=== PATIENT | male | born 1990 | race African-American/Black ===

== ENCOUNTER 2018-11-12 16:01 | Emergency (ER) | payer MEDICAID ==
[~2018-11-12] VITALS: Ht 190.5 cm; Wt 119.0 kg
[2018-11-12] MEDS ORDERED: ALBUTEROL (0.083%) 2.5MG/3ML NEB HHN STA (16:11)
[2018-11-12] MEDS ORDERED: PREDNISONE 20MG TABLET PO STA (16:11)
[2018-11-12] MEDS ORDERED: IPRATROPIUM BROMIDE (0.02%) 0.5MG/2.5ML NEB HHN STA (16:11)
[2018-11-12 17:45] VITALS: BP 146/98
== END 2018-11-12 17:52 | disposition home or self-care (01) ==
LOC: ER 16:01
DX: J45.901 Unspecified asthma with (acute) exacerbation (principal); E66.01 Morbid (severe) obesity due to excess calories; Z68.32 Body mass index [BMI] 32.0-32.9, adult; Z91.013 Allergy to seafood
CPT/HCPCS: 71045; 93005; 94644; 99285; J7512; J7611